=== PATIENT | female | born 1960 | race Caucasian/White ===

== ENCOUNTER 2021-01-17 07:34 | Outpatient (CLI) | payer BC, SELFPAY ==
--- NOTE | ~2021-01-17 | DEXA_ITS ---
Bone Density Report Name: Laura Marie Age: 60 Sex: Female Ethnicity: White Date of : 1960 Indication: postmenopausal; prior fracture; asthma or emphysema; Referring Provider: HARINDER LONDONO Study: Bone densitometry was performed. Exam Date: January 17, 2021 Accession number: [id number] Bone Density: Region BMD T-score Z-score Classification AP Spine (L1-L4) 0.826 -2.0 -0.6 Osteopenia Femoral Neck (Left) 0.481 -3.3 -2.0 Osteoporosis Total Hip (Left) 0.875 -0.6 0.4 Normal Total Hip Bilateral Avg 0.851 -0.8 0.2 Normal Femoral Neck (Right) 0.570 -2.5 -1.2 Osteoporosis Total Hip (Right) 0.826 -1.0 0.0 Normal World Health Organization criteria for BMD impression classify patients as: Normal (T-score at or above -1.0), Osteopenia (T-score between -1.0 and -2.5), or Osteoporosis (T-score at or below -2.5). 10-year Fracture Risk: FRAX not reported because: Some T-score for Spine Total or Hip Total or Femoral Neck at or below -2.5 Clinical Information Provided by Patient: Has had a low trauma fracture Has used the following medications: Fosamax (i.e. alendronate), Calcium Has the following medical conditions: Asthma or Emphysema Patient maximum height was 59 Menopause Age: 54 Drinks caffeinated beverages Onset of menses at age 15 Number of children 0 Impression: The patient has established osteoporosis, based on the Left Femoral Neck T-score and the existence of a prior fracture. The patient has risk factors, including: previous fracture. Discussion: HIGH RISK OF FRACTURE. BONE DENSITY IS UNDESIRABLY LOW AT ONE OR MORE SKELETAL SITES, CONSISTENT WITH POSTMENOPAUSAL OSTEOPOROSIS. This patient's lowest T-score, in a patient who has previously fractured, meets the World Health Organization's (WHO) criteria for severe osteoporosis. In untreated patients, the risk of osteoporotic fracture increases approximately two-fold for each 1.0 SD decrease in T-score. Low bone density is not the only risk factor for fracture; also consider factors such as patient's age, frailty or poor health, risk of falling, risk of injury, previous osteoporotic fracture, family history of osteoporosis, cigarette smoking, low body weight, etc. Not everyone with low bone mineral density has osteoporosis; osteomalacia and other metabolic bone disorders should also be considered. Patients who have osteoporosis should be evaluated for specific diseases and conditions (secondary causes) that may cause or contribute to bone loss. The [place] [employer] (AACE) and National Osteoporosis Foundation (NOF) recommend pharmacologic intervention for all postmenopausal women whose T-score is in this range. The patient should follow a healthful lifestyle (good nutrition with adequate calcium and vitamin D, and appropriate weight-bearing
== END 2021-01-17 07:35 | disposition home or self-care (01) ==
PROVIDERS: PCP Family Medicine; Visit Provider Family Medicine
DX: Z13.820 Encounter for screening for osteoporosis (principal); Z78.0 Asymptomatic menopausal state; M85.88 Other specified disorders of bone density and structure, other site; M81.0 Age-related osteoporosis without current pathological fracture
CPT/HCPCS: 77080

== ENCOUNTER 2022-04-27 14:07 | Outpatient (CLI) | payer BC, SELFPAY ==
--- NOTE | 2022-04-27 14:52 | ECHO_ITS ---
Patient Info Name: Laura Marie Age: 62 years : 1960 Gender: Female Ht: 59 in Wt: 225 lbs BSA: 2.13 m2 HR: 78 bpm BP: 150 / 79 mmHg Technical Quality: Fair Exam Date: 04/27/2022 3:19 PM Exam Location: [facility] Patient Status: Outpatient Admit Date: 04/27/2022 Staff Ordering Physician: Marlena Gilbert PAC Telephone Mechanic: Aye Grajeda RDCS Attending Provider: Marlena Gilbert PAC Referring Physician: Ofelia AMBROSIO; Exam Type: CA echo doppler color flow Study Info Indications - cardiac murmur Complete two-dimensional, color flow and Doppler transthoracic echocardiogram is performed. Summary 1. Complete two-dimensional, color flow and Doppler transthoracic echocardiogram is performed. 2. Left ventricular chamber dimension is normal. 3. Left ventricular systolic function is normal, estimated at 60-65%. 4. The left ventricular diastolic function is grade I diastolic dysfunction. 5. E/e' 14 is mildly elevated. 6. Left atrial chamber dimension is mildly enlarged. 7. No pulmonary hypertension, estimated pulmonary arterial systolic pressure is 29 mmHg. Left Ventricle E/e' 14 is mildly elevated. Left ventricular chamber dimension is normal. Left ventricular systolic function is normal, estimated at 60-65%. The left ventricular diastolic function is grade I diastolic dysfunction. Right Ventricle Right ventricular chamber dimension is normal. Right ventricular systolic function is normal. Left Atria Left atrial chamber dimension is mildly enlarged. Right Atria Right atrial chamber dimension is normal. Aortic Valve The aortic valve is trileaflet. There is no aortic valve stenosis. There is no aortic valve regurgitation. Pulmonic Valve There is no pulmonic regurgitation. Mitral Valve There is no mitral valve stenosis. There is no mitral valve regurgitation. Tricuspid Valve There is no tricuspid valve regurgitation. No pulmonary hypertension, estimated pulmonary arterial systolic pressure is 29 mmHg. Pericardium/Pleural There is no pericardial effusion. Inferior Vena Cava Normal inferior vena cava with >50% collapse upon inspiration consistent with normal right atrial pressure, 5 mmHg. Aorta The aortic root size at the sinus of Valsalva is normal. Left Ventricular Outflow Tract Name Value Normal LVOT 2D LVOT Diameter 2.0 cm LVOT Doppler LVOT Peak Gradient 8 mmHg LVOT Mean Gradient 5 mmHg LVOT VTI 31 cm LVOT VTI/AV VTI Ratio 1.0 LVOT Stroke Volume 98 ml LVOT CO 19.2 l/min LVOT CI 9.0 l/min/m2 Pulmonic Valve Name Value Normal PV Doppler PV Peak Gradient 6 mmHg Mitral Valve -
== END 2022-04-27 14:08 | disposition home or self-care (01) ==
PROVIDERS: PCP Family Medicine; Visit Provider Physician Assistant Medical
DX: R01.1 Cardiac murmur, unspecified (principal); I51.7 Cardiomegaly
CPT/HCPCS: 93306

== ENCOUNTER 2022-05-29 08:14 | Outpatient (CLI) | payer BC, SELFPAY ==
[2022-05-29 09:38] LABS: Alanine Aminotransferase 18 U/L (6-35); Cholesterol 129 mg/dL (0-200); Creatine Kinase 125 U/L (30-135); HDL Direct 63 mg/dL; Triglycerides 67 mg/dL (<150)
[2022-05-29 09:54] LABS: LDL Cholesterol Direct 38 mg/dL
== END 2022-05-29 08:15 | disposition home or self-care (01) ==
LOC: ANHLAB 08:16
PROVIDERS: PCP Family Medicine; Visit Provider Physician Assistant Medical
DX: E78.5 Hyperlipidemia, unspecified (principal)
CPT/HCPCS: 36415; 80061; 82550; 84460

== ENCOUNTER 2022-07-24 14:12 | Outpatient (NON) | payer BC, SELFPAY | END 2022-07-24 14:13 | disposition home or self-care (01) | LOC: ANHLAB 14:14 | PROVIDERS: PCP Family Medicine; Visit Provider Nurse Practitioner | DX: B07.8 Other viral warts (principal) | CPT/HCPCS: 88305 ==